=== PATIENT | female | born 1965 | race Caucasian/White ===

== ENCOUNTER 2016-05-25 12:39 | Day surgery (SDC) | payer OTHER ==
[2016-05-25] MEDS ORDERED: IV START KIT ONE (12:49)
[2016-05-25] MEDS ORDERED: LACTATED RINGERS 1,000 ML ONE (12:49)
[2016-05-25] MEDS ORDERED: PROPOFOL 60 ML IV ONE (14:53)
[2016-05-25] MEDS ORDERED: PROPOFOL 20 ML IV ONE (15:09)
[2016-05-25] MEDS ORDERED: LACTATED RINGERS 1,000 ML IV SCH (15:15)
--- NOTE | 2016-05-30 09:55 | SURGPATH ---
[facility] [address] [place] [address] Patient Name: TRA SAUCEDO MR#: [id number] : 1965 Gender: F Specimen #: [id number] Collected: 05/25/2016 Received: 05/27/2016 Reported: 05/30/2016 Submitting Phys: ARON SALGADO Copy To Phys: [facility] Clinical History / Pre-Operative Diagnosis: Screening for malignant colonic neoplasm Specimen Source / Surgical Procedure Performed: #1-cecum biopsy (possible lipoma); #2-transverse colon polyp; #3-sigmoid colon polyp; #4-rectum polyp at 16 cm; #5-rectal polyp at 8 cm Interpretation: 1. CECUM, BIOPSY: - NO PATHOLOGIC ABNORMALITY 2. TRANSVERSE COLON POLYP, BIOPSY: - TUBULAR ADENOMA 3. SIGMOID COLON, BIOPSY: - HYPERPLASTIC POLYP 4. RECTUM AT 16 CM, BIOPSY: - HYPERPLASTIC POLYP 5. RECTUM AT 8 CM, BIOPSY: - HYPERPLASTIC POLYP Electronically Signed Out Lakhwinder Harvey M.D. Gross Description: #1 The specimen is received in a formalin filled container labeled with the patient's name and "cecum biopsy". Five lara-vasquez biopsies are 0.2-0.4 cm. Totally embedded in cassette #1. #2 The specimen is received in a formalin filled container labeled with the patient's name and "transverse colon polyp". A single vasquez biopsy is 0.3 cm. Totally embedded in cassette #2. #3 The specimen is received in a formalin filled container labeled with the patient's name and "sigmoid colon". A single lara biopsy is 0.4 cm. Totally embedded in cassette #3. #4 The specimen is received in a formalin filled container labeled with the patient's name and "rectal polyp at 16 cm". A single lara biopsy is 0.5 cm. Totally embedded in cassette #4. #5 The specimen is received in a formalin filled container labeled with the patient's name and "rectal polyp at 8 cm". Two vasquez biopsies are 0.3 and 0.4 cm. Totally embedded in cassette #5. Erick Ceron PPal Microscopic Description: 1. Sections show normal colonic mucosa. 2. Sections show a small tubular adenoma. 3, 4, 5. Sections show small hyperplastic polyps. 1: 75730 2: 14628 3: 24764 4: 95286 5: 37356 D12.3 K62.1
== END 2016-05-25 15:38 | disposition home or self-care (01) ==
LOC: SDC 12:39
PROVIDERS: ATTEND Surgery
PROC: 0DBL8ZX Excision of Transverse Colon, Via Natural or Artificial Opening Endoscopic, Diagnostic (ICD-10-PCS; principal; 2016-05-25)
PROC: 0DBN8ZX Excision of Sigmoid Colon, Via Natural or Artificial Opening Endoscopic, Diagnostic (ICD-10-PCS; 2016-05-25)
PROC: 0DBH8ZX Excision of Cecum, Via Natural or Artificial Opening Endoscopic, Diagnostic (ICD-10-PCS; 2016-05-25)
PROC: 0DBP8ZX Excision of Rectum, Via Natural or Artificial Opening Endoscopic, Diagnostic (ICD-10-PCS; 2016-05-25)
DX: D12.3 Benign neoplasm of transverse colon (principal); K63.5 Polyp of colon; Z79.899 Other long term (current) drug therapy; Z87.11 Personal history of peptic ulcer disease; F17.210 Nicotine dependence, cigarettes, uncomplicated